=== PATIENT | male | born 2000 | race Hispanic/Latino ===

== ENCOUNTER 2025-06-21 13:21 | Emergency (ER) | payer OTHER ==
[~2025-06-21] VITALS: Ht 165.1 cm; Wt 71.4 kg
[2025-06-21 13:50] VITALS: PULSE 53; RESP 16; TEMP 98.3; O2SAT 100
== END 2025-06-21 14:55 | disposition home or self-care (01) ==
LOC: FSED 14:37
DX: K62.89 Other specified diseases of anus and rectum (principal); K60.2 Anal fissure, unspecified; F17.210 Nicotine dependence, cigarettes, uncomplicated
CPT/HCPCS: 82270; 99284